=== PATIENT | male | born 1950 | race Caucasian/White ===

== ENCOUNTER 2016-04-25 13:00 | Observation (INO) | payer MEDICARE ==
[~2016-04-25] VITALS: Ht 182.9 cm; Wt 88.0 kg
[2016-04-25] MEDS ORDERED: METO-93 PO (13:57)
[2016-04-25] MEDS ORDERED: PANT40TA5 PO (13:57)
[2016-04-25] MEDS ORDERED: TIOT18CA INH (13:57)
[2016-04-25] MEDS ORDERED: GABA300C10 PO (13:57)
[2016-04-25 14:00] LABS: HEMOGLOBIN 14.7 g/dL (13.7-18.0)
[2016-04-25] MEDS ORDERED: CLOPIDOGREL 75 MG TABLET PO ONE (14:00)
[2016-04-25 14:04] LABS: BLOOD UREA NITROGEN 16 mg/dL (7-18)
[2016-04-25 14:08] LABS: ASPARTATE AMINO TRANSFERASE 13 U/L (15-37)
[2016-04-25 14:09] LABS: IS PT STATUS REG ER OR PRE ER? YES
[2016-04-25] MEDS ORDERED: CLOPIDOGREL 75 MG TABLET ONE (14:32)
[2016-04-25] MEDS ORDERED: SODIUM CHLORIDE 0.9% 1,000 ML IV SCH (15:17)
[2016-04-25] MEDS ORDERED: LABETALOL 5MG/ML, 20ML IV PRN (15:30)
[2016-04-25] MEDS ORDERED: ACETAMINOPHEN 325 MG TABLET PO PRN (15:30)
[2016-04-25] MEDS ORDERED: POLYETHYLENE GLYCOL 17 GM PACKET PO PRN (15:30)
[2016-04-25] MEDS ORDERED: HYDROcodone/APAP 5/325 TABLET PO PRN (15:30)
[2016-04-25] MEDS ORDERED: BISACODYL 10 MG SUPP PR PRN (15:30)
[2016-04-25] MEDS ORDERED: NITROGLYCERIN 0.4 MG BOTTLE (25 TABS) SL PRN (15:30)
[2016-04-25] MEDS ORDERED: DOCUSATE 100 MG CAPSULE PO PRN (15:30)
[2016-04-25] MEDS ORDERED: MORPHINE SULFATE 4 MG/ML, 1ML IVPush PRN (15:30)
[2016-04-25] MEDS ORDERED: ONDANSETRON 2MG/ML, 2ML IVP PRN (15:30)
[2016-04-25 16:23] LABS: IS PT STATUS REG ER OR PRE ER? YES
[2016-04-25 17:28] VITALS: BP 133/89
[2016-04-25] MEDS: HEPARIN 5,000 UNITS/ML, 1ML SQ SCH (18:47)
[2016-04-25] MEDS ORDERED: OMNIPAQUE 350 MG/ML, 100ML BOTTLE ONE (18:58)
[2016-04-25] MEDS ORDERED: NICOTINE 7 MG/24 HR PATCH.TD24 TD SCH (19:00)
[2016-04-25 20:25] VITALS: BP 124/77
[2016-04-25] MEDS: GABAPENTIN 300 MG CAPSULE PO SCH (20:34)
[2016-04-25 23:15] LABS: IS PT STATUS REG ER OR PRE ER? NO
[2016-04-26] MEDS: HEPARIN 5,000 UNITS/ML, 1ML SQ SCH ×3 (00:41→16:15)
[2016-04-26 02:35] VITALS: BP 134/89
[2016-04-26] MEDS ORDERED: ASPIRIN 325 MG TABLET EC PO SCH (06:00)
[2016-04-26 06:06] LABS: BLOOD UREA NITROGEN 15 mg/dL (7-18)
[2016-04-26 07:15] VITALS: BP 147/63
[2016-04-26] MEDS ORDERED: REGADENOSON 0.4 MG/5 ML SYRINGE ONE (08:53)
[2016-04-26] MEDS ORDERED: METOPROLOL SUCCINATE 50 MG TAB.ER.24H PO SCH (09:00)
[2016-04-26] MEDS: GABAPENTIN 300 MG CAPSULE PO SCH (10:23)
[2016-04-26 14:14] VITALS: BP 115/76
== END 2016-04-26 17:54 | disposition home or self-care (01) ==
LOC: ED 13:53 → INTOOBSV 14:57 → OBSVTOIN 14:57 → EDIP 14:57 → 5SO 17:19
PROVIDERS: ADMIT Internal Medicine; ATTEND Internal Medicine
DX: R07.9 Chest pain, unspecified (principal); N17.0 Acute kidney failure with tubular necrosis; E87.1 Hypo-osmolality and hyponatremia; F17.200 Nicotine dependence, unspecified, uncomplicated; J44.9 Chronic obstructive pulmonary disease, unspecified; I25.2 Old myocardial infarction; I11.9 Hypertensive heart disease without heart failure; Z82.49 Family history of ischemic heart disease and other diseases of the circulatory system; Z87.11 Personal history of peptic ulcer disease; Z66 Do not resuscitate
CPT/HCPCS: 36415; 71010; 71275; 78452; 80048; 80053; 80061; 84484; 85025; 85379; 85610; 85730; 93005; 93017; 96360; 96361; 96372; 99285; A9502; C9898; G0378; J1644; J2785; J7030; Q9967